=== PATIENT | female | born 1960 | race Caucasian/White ===

== ENCOUNTER 2016-08-31 15:57 | Emergency (ER) | payer OTHER ==
[2016-08-31 16:10] VITALS: BP 133/81; PULSE 107; RESP 20; TEMP 97.9; O2SAT 96
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
[2016-08-31] MEDS ORDERED: IBUPROFEN 600 MG TAB PO ONE (16:39)
== END 2016-08-31 16:45 | disposition home or self-care (01) ==
DX: S46.911A Strain of unspecified muscle, fascia and tendon at shoulder and upper arm level, right arm, initial encounter (principal); S16.1XXA Strain of muscle, fascia and tendon at neck level, initial encounter; Z87.891 Personal history of nicotine dependence; V49.40XA Driver injured in collision with unspecified motor vehicles in traffic accident, initial encounter; Y92.410 Unspecified street and highway as the place of occurrence of the external cause; Y99.8 Other external cause status; Y93.89 Activity, other specified